=== PATIENT | female | born 1995 | race Caucasian/White ===

== ENCOUNTER 2020-10-15 20:00 | Emergency (ER) | payer BC ==
[~2020-10-15] VITALS: Ht 165.1 cm; Wt 45.4 kg
[2020-10-15] MEDS ORDERED: LORAZEPAM 2 MG/1 ML VIAL IM ONE (20:30)
[2020-10-15 20:42] LABS: BASOPHILS # (AUTO) 0.1 K/uL (0.0-8.0); BASOPHILS % (AUTO) 0.9 % (0.0-2.0); EOSINOPHILS # (AUTO) 0.1 K/uL (0.0-0.7); HEMATOCRIT 44.3 % (31.2-41.9); HEMOGLOBIN 15.3 g/dL (10.9-14.3); LYMPHOCYTES # (AUTO) 3.4 K/uL (20.0-40.0); LYMPHOCYTES % (AUTO) 30.8 % (20.5-51.5); MEAN CORPUSCULAR HEMOGLOBIN 31.6 uug (24.7-32.8); MEAN CORPUSCULAR HGB CONC 34 g/dL (32.3-35.6); MEAN CORPUSCULAR VOLUME 91.7 fL (75.5-95.3); MONOCYTES # (AUTO) 0.8 K/uL (2.0-10.0); MONOCYTES % (AUTO) 7.8 % (0.0-11.0); NEUTROPHILS # (AUTO) 6.5 K/uL (1.8-8.9); NEUTROPHILS % (AUTO) 59.5 % (38.5-71.5); PLATELET COUNT (AUTO) 389 K/uL (179-408); RED BLOOD CELL COUNT(AUTO) 4.83 MIL/uL (3.63-4.92); WHITE BLOOD COUNT (AUTO) 10.9 K/uL (3.8-11.8)
[2020-10-15] MEDS ORDERED: LORAZEPAM 2 MG/1 ML VIAL ONE ×2 (20:43→21:58)
[2020-10-15 20:52] LABS: CREATININE 0.8 mg/dL (0.6-1.3); POTASSIUM 3.8 mmol/L (3.5-5.1)
[2020-10-15 20:58] LABS: BILIRUBIN,DIRECT 0.1 mg/dL (0.0-0.2); BILIRUBIN,TOTAL 0.3 mg/dL (0.2-1.0); TOTAL PROTEIN, SERUM 7.8 g/dL (6.4-8.2)
[2020-10-15] MEDS ORDERED: IV NORMAL SALINE 1000 ML BAG IV ONE (21:00)
[2020-10-15] MEDS ORDERED: LORAZEPAM 2 MG/1 ML VIAL IV ONE (21:45)
--- NOTE | 2020-10-15 22:00 | NUR ---
Patient is resting on bed, no acute distress is noted at this time.
[2020-10-15 22:40] VITALS: BP 133/88
--- NOTE | 2020-10-15 22:40 | NUR ---
Patient discharged to home in stable condition. Written and verbal after care instructions given. Patient verbalizes understanding of instructions. Stressed follow up or return to ER for worsening s/s. Patient ambulates with steady gait, V/S stable, left with all personal belongings. Advised to not drive.
== END 2020-10-15 22:40 | disposition home or self-care (01) ==
LOC: ER 20:03
DX: F41.0 Panic disorder [episodic paroxysmal anxiety] (principal); F31.9 Bipolar disorder, unspecified; F43.10 Post-traumatic stress disorder, unspecified
CPT/HCPCS: 36415; 80048; 80076; 84443; 85025; 96361; 96372; 96374; 99284; J2060 ×2; A4663; J7030

== ENCOUNTER 2020-10-16 14:12 | Emergency (ER) | payer BC ==
[~2020-10-16] VITALS: Ht 165.1 cm; Wt 45.4 kg
--- NOTE | 2020-10-16 14:19 | NUR ---
at bedside for assessment
[2020-10-16] MEDS ORDERED: LORAZEPAM 1 MG TABLET ONE (14:30)
[2020-10-16] MEDS ORDERED: LORAZEPAM 0.5 MG TABLET PO ONE (14:30)
--- NOTE | 2020-10-16 14:39 | NUR ---
Patient discharged to home in stable condition. Able to ambulate with steady gait. Written and verbal after care instructions given. Patient verbalizes understanding of instructions. Stressed follow up or return to ER for worsening s/s.
[2020-10-16 14:40] VITALS: BP 120/86
== END 2020-10-16 14:42 | disposition home or self-care (01) ==
LOC: ER 14:13
DX: F41.0 Panic disorder [episodic paroxysmal anxiety] (principal); F31.9 Bipolar disorder, unspecified; F43.10 Post-traumatic stress disorder, unspecified
CPT/HCPCS: A4663